=== PATIENT | female | born 1955 | race Caucasian/White ===

== ENCOUNTER 2021-02-27 11:16 | Emergency (ER) | payer BC ==
[~2021-02-27] VITALS: Ht 170.2 cm; Wt 90.0 kg
[2021-02-27] MEDS ORDERED: [UNRECOGNIZED DRUG - OTHER] IV ONE ×2 (12:10→12:26)
[2021-02-27 15:04] VITALS: BP 125/72
== END 2021-02-27 15:05 | disposition home or self-care (01) ==
LOC: ER 11:16
DX: U07.1 COVID-19 (principal); E11.9 Type 2 diabetes mellitus without complications; I10 Essential (primary) hypertension
CPT/HCPCS: 99283; M0243; Q0243

== ENCOUNTER → 2024-01-10 | Outpatient (CLI) | payer BC | END | disposition home or self-care (01) | LOC: 64 CT 13:56 | PROVIDERS: ATTEND Podiatrist Foot & Ankle Surgery | DX: M19.072 Primary osteoarthritis, left ankle and foot (principal); M25.472 Effusion, left ankle; M25.372 Other instability, left ankle; L60.0 Ingrowing nail; M79.672 Pain in left foot; M25.572 Pain in left ankle and joints of left foot | CPT/HCPCS: 73700 ==